=== PATIENT | female | born 1960 | race Caucasian/White ===

== ENCOUNTER 2018-08-06 21:26 | Emergency (ER) | payer SELFPAY ==
[~2018-08-06] VITALS: Ht 167.6 cm; Wt 115.2 kg
--- NOTE | 2018-08-06 21:31 | NUR ---
PT BIBA to bed 09.
--- NOTE | 2018-08-06 21:32 | NUR ---
[place] [employer] AT BEDSIDE
[2018-08-06 21:40] VITALS: BP 212/99
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
--- NOTE | 2018-08-06 21:48 | NUR ---
Dr. Acosta evaluating patient at bedside.
[2018-08-06] MEDS ORDERED: IBUPROFEN 800 MG TAB PO ONE (21:50)
--- NOTE | 2018-08-06 22:07 | NUR ---
PT RETURN FROM CT
[2018-08-06] MEDS ORDERED: cloNIDine 0.1 MG TAB PO ONE ×2 (22:50→23:45)
--- NOTE | 2018-08-07 00:15 | NUR ---
PT IS REFUSED BP MED. ER MADE AWARE
[2018-08-07] MEDS ORDERED: hydrALAZINE 20 MG/ML VIAL IM ONE (00:25)
[2018-08-07 00:37] VITALS: BP 191/92
--- NOTE | 2018-08-07 00:37 | NUR ---
Patient discharged with v/s stable. Written and verbal after care instructions given and explained. Patient alert, oriented and verbalized understanding of instructions. Ambulatory with steady gait. All questions addressed prior to discharge. ID band removed. Patient advised to follow up with PMD. Rx of IBUPROFEN WAS given. Patient educated on indication of medication including possible reaction and side effects. Opportunity to ask questions provided and answered.
== END 2018-08-07 00:37 | disposition home or self-care (01) ==
LOC: MED 21:26
DX: S01.01XA Laceration without foreign body of scalp, initial encounter (principal); I10 Essential (primary) hypertension; Y08.09XA Assault by strike by other specified type of sport equipment, initial encounter; Y93.89 Activity, other specified; Y92.89 Other specified places as the place of occurrence of the external cause; Y99.8 Other external cause status
CPT/HCPCS: 12001; 70450; 90471; 90715; 99284; J0360

== ENCOUNTER 2018-08-16 14:47 | Emergency (ER) | payer OTHER ==
[~2018-08-16] VITALS: Ht 152.4 cm; Wt 118.8 kg
[2018-08-16 14:57] VITALS: BP 186/97
[2018-08-16] MEDS ORDERED: NEOMYCIN/POLYMYXIN/BACITRACIN 0.9 GM/1 PKT TP ONE (15:00)
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
--- NOTE | 2018-08-16 15:03 | NUR ---
DR. CASTRO AT THE BEDSIDE.
[2018-08-16] MEDS ORDERED: cloNIDine 0.1 MG TAB PO ONE (15:05)
--- NOTE | 2018-08-16 15:22 | NUR ---
Patient noted to have existing wounds upon arrival to ER. 5 staple removal. Wound covered with dressing. Physician informed.
--- NOTE | 2018-08-16 15:25 | NUR ---
PT ENCOURAGED TO COLLECT URINE FOR UA. A CUP OF WATER PROVIDED.
--- NOTE | 2018-08-16 15:41 | NUR ---
Patient discharged with v/s stable. Written and verbal after care instructions given and explained. Patient alert, oriented and verbalized understanding of instructions. Ambulatory with steady gait. All questions addressed prior to discharge. ID band removed. Patient advised to follow up with PMD. Rx of CLONIDINE given. Patient educated on indication of medication including possible reaction and side effects. Opportunity to ask questions provided and answered.
[2018-08-16 15:46] VITALS: BP 154/76
--- NOTE | 2018-08-16 15:47 | NUR ---
HOMELESS PACK PROVIDED TO PT.
[2018-08-16 16:28] LABS: APPEARANCE,URINE CLEAR (CLEAR); BILIRUBIN,URINE NEGATIVE (NEGATIVE); BLOOD, URINE NEGATIVE (NEGATIVE); COLOR,URINE YELLOW (YELLOW); LEUKOCYTE ESTERASE ,URINE NEGATIVE (NEGATIVE); NITRITE, URINE NEGATIVE (NEGATIVE); UGLUCOSE NEGATIVE (NEGATIVE)
== END 2018-08-16 15:41 | disposition home or self-care (01) ==
LOC: MED 14:47
DX: S01.01XD Laceration without foreign body of scalp, subsequent encounter (principal); I10 Essential (primary) hypertension; X58.XXXD Exposure to other specified factors, subsequent encounter
CPT/HCPCS: 81003; 81025; 99283